=== PATIENT | female | born 1950 | race Hispanic/Latino ===

== ENCOUNTER 2018-11-14 09:49 | Outpatient (CLI) | payer MEDICARE | END 2018-11-14 09:50 | disposition home or self-care (01) | LOC: RAD 09:49 ==

== ENCOUNTER 2018-12-03 06:46 | Day surgery (SDC) | payer MEDICARE ==
[2018-12-03] MEDS ORDERED: Propofol 10 mg/ml Inj (20 ML) ONE (09:16)
[2018-12-03] MEDS ORDERED: Sodium Chloride 0.9% 1,000 ML IV SCH (09:45)
[2018-12-03 10:24] VITALS: BP 154/67; PULSE 50; RESP 19; TEMP 98.1; O2SAT 95
== END 2018-12-03 11:00 | disposition home or self-care (01) ==
LOC: ENDO 06:46
PROVIDERS: ATTEND Specialist
DX: K57.30 Diverticulosis of large intestine without perforation or abscess without bleeding (principal); K64.8 Other hemorrhoids; D64.9 Anemia, unspecified; K21.9 Gastro-esophageal reflux disease without esophagitis; J44.9 Chronic obstructive pulmonary disease, unspecified; I10 Essential (primary) hypertension
CPT/HCPCS: 45378; J2001; J2704; J7030; J7120